=== PATIENT | female | born 1955 | race Asian ===

== ENCOUNTER 2020-09-04 16:23 | Observation (INO) | payer OTHER ==
[~2020-09-04] VITALS: Ht 188 cm; Wt 126.6 kg
[2020-09-04] VITALS (11 sets, daily range): BP systolic 158–206; BP diastolic 62–110; TEMP 98.2–98.9; Ht 188 cm; Wt 126.6 kg
[2020-09-04 17:31] LABS: PLATELET COUNT 146 K/uL (152-353)
[2020-09-04 17:39] LABS: POTASSIUM 4.1 mmol/L (3.6-5.2); SODIUM 137 mmol/L (136-145)
[2020-09-05] VITALS (7 sets, daily range): BP systolic 116–173; BP diastolic 61–88; TEMP 98.2–98.9
[2020-09-05 05:34] LABS: PLATELET COUNT 136 K/uL (152-353)
[2020-09-05 05:56] LABS: POTASSIUM 4.7 mmol/L (3.6-5.2); SODIUM 133 mmol/L (136-145)
[2020-09-06 04:00] VITALS: BP 155/84; TEMP 98.7
[2020-09-06 06:14] LABS: SODIUM 134 mmol/L (136-145)
[2020-09-06 06:30] LABS: PLATELET COUNT 126 K/uL (152-353)
[2020-09-06 08:00] VITALS: BP 115/70; TEMP 98.6
[2020-09-06 11:56] VITALS: BP 138/70; TEMP 99.9
[2020-09-06 16:00] VITALS: BP 145/79; TEMP 99
== END 2020-09-06 16:30 | disposition home or self-care (01) ==
LOC: ED 16:23 → MED/SURG 18:43
PROVIDERS: ADMIT Emergency Medicine Emergency Medical Services; ATTEND Internal Medicine Endocrinology, Diabetes & Metabolism
DX: J18.8 Other pneumonia, unspecified organism (principal); R07.89 Other chest pain; I10 Essential (primary) hypertension; J90 Pleural effusion, not elsewhere classified; N17.9 Acute kidney failure, unspecified; E66.01 Morbid (severe) obesity due to excess calories; E27.9 Disorder of adrenal gland, unspecified
CPT/HCPCS: 36415; 80048; 80053; 84484; 85027; 85379; 87070; 87205; 87635; 93005; 94760; 96360; 96365; 96366; 96372; 96374; 96375; 96376; 99220; 99284; G0378; J0360; J1170; J1650; J1885; J1956; J2270; J2405; J3490; Q9963; U0003

== ENCOUNTER 2020-12-07 08:39 | Outpatient (CLI) | payer OTHER | END 2020-12-07 21:26 | disposition home or self-care (01) | LOC: MAMMO 08:39 | PROVIDERS: ATTEND Nurse Practitioner | DX: Z12.31 Encounter for screening mammogram for malignant neoplasm of breast (principal) ==

== ENCOUNTER 2022-04-04 09:41 | Outpatient (CLI) | payer BC | END 2022-04-04 20:34 | disposition home or self-care (01) | LOC: RAD 09:41 | PROVIDERS: ATTEND Registered Nurse | DX: M79.672 Pain in left foot (principal) ==

== ENCOUNTER 2022-05-07 11:04 | Outpatient (CLI) | payer BC | END 2022-05-07 19:05 | disposition home or self-care (01) | LOC: US 11:04 | PROVIDERS: ATTEND Nurse Practitioner Family | DX: R60.0 Localized edema (principal) ==

== ENCOUNTER 2022-05-13 12:50 | Outpatient (CLI) | payer BC | END 2022-05-13 19:00 | disposition home or self-care (01) | LOC: US 12:50 | PROVIDERS: ATTEND Nurse Practitioner Family | DX: R60.0 Localized edema (principal) ==

== ENCOUNTER 2022-05-30 12:45 | Outpatient (CLI) | payer BC | END 2022-05-30 19:26 | disposition home or self-care (01) | LOC: RAD 12:45 | PROVIDERS: ATTEND Registered Nurse | DX: M54.41 Lumbago with sciatica, right side (principal) ==

== ENCOUNTER 2022-06-05 21:33 | Emergency (ER) | payer BC ==
[~2022-06-05] VITALS: Ht 188 cm; Wt 126.6 kg
[2022-06-05 23:45] VITALS: BP 155/88; TEMP 98.1
== END 2022-06-05 23:45 | disposition home or self-care (01) ==
LOC: ED 21:33
DX: M51.36 Other intervertebral disc degeneration, lumbar region (principal)
CPT/HCPCS: 96372; 99283; J1885

== ENCOUNTER 2022-06-23 04:55 | Inpatient (IN) | payer BC ==
[2022-06-23] VITALS (17 sets, daily range): BP systolic 106–185; BP diastolic 60–101; TEMP 98.1–99.1; Ht 188 cm; Wt 122.0 kg
[~2022-06-23] VITALS: Ht 188 cm; Wt 122.0 kg
[2022-06-23 05:34] LABS: PLATELET COUNT 182 K/uL (152-353)
[2022-06-23 05:40] LABS: POTASSIUM 4.4 mmol/L (3.6-5.2)
[2022-06-23 05:48] LABS: PARTIAL THROMBOPLASTIN TIME 25.7 SECONDS (24.5-33.6)
[2022-06-23] MEDS ORDERED: MOBIC15 MG PO (14:38)
[2022-06-23] MEDS ORDERED: CYCL10TA35 PO (14:39)
[2022-06-23] MEDS ORDERED: CLARITIN10 M1 PO (14:39)
[2022-06-23] MEDS ORDERED: ROPINIROLE4 MG PO (14:40)
[2022-06-24] VITALS: BP 137/66; TEMP 97.9
[2022-06-24 04:00] VITALS: BP 150/78; TEMP 97.9
[2022-06-24 05:55] LABS: PLATELET COUNT 156 K/uL (152-353)
[2022-06-24 06:18] LABS: POTASSIUM 4.5 mmol/L (3.6-5.2)
[2022-06-24 08:00] VITALS: BP 165/80; TEMP 97.9
[2022-06-24] MEDS ORDERED: INSUINJ20 SC (09:04)
[2022-06-24] MEDS ORDERED: DECADRON6 MG PO (09:05)
[2022-06-24] MEDS ORDERED: METF500T PO (10:16)
[2022-06-24] MEDS ORDERED: VITAMIN D1000 UNIT PO (10:20)
[2022-06-24 12:00] VITALS: BP 155/76; TEMP 97.3
== END 2022-06-24 12:48 | disposition home or self-care (01) | DRG 554 ==
LOC: ED 04:55 → MED/SURG 09:10
PROVIDERS: Emergency Medicine; ADMIT Internal Medicine; ATTEND Internal Medicine
DX: M15.8 Other polyosteoarthritis (principal); E09.65 Drug or chemical induced diabetes mellitus with hyperglycemia; T38.0X5A Adverse effect of glucocorticoids and synthetic analogues, initial encounter; Y92.89 Other specified places as the place of occurrence of the external cause; I10 Essential (primary) hypertension; D72.828 Other elevated white blood cell count; E27.8 Other specified disorders of adrenal gland; R79.1 Abnormal coagulation profile
CPT/HCPCS: 36415; 80053; 81002; 82088; 82306; 82550; 82728; 83036; 83615; 83880; 84443; 84484; 85027; 85379; 85610; 85652; 85730; 86038; 86140; 86160; 86225; 86235; 86376; 86430; 86800; 86803; 87635; 93005; 96360; 96374; 96375; 99284; J1650; J2270; J2405; J2543; J2930; Q9963; U0003

== ENCOUNTER 2022-07-05 07:31 | Emergency (ER) | payer BC ==
[~2022-07-05] VITALS: Ht 188 cm; Wt 122.0 kg
[~2022-07-05 07:31] MED LIST: CLARITIN10 M1 PO; CYCL10TA35 PO; DECADRON6 MG PO; INSUINJ20 SC; METF500T PO; MOBIC15 MG PO; ROPINIROLE4 MG PO; VITAMIN D1000 UNIT PO
[2022-07-05 07:34] VITALS: BP 155/95; TEMP 98
== END 2022-07-05 09:20 | disposition home or self-care (01) ==
LOC: ED 07:31
DX: M33.20 Polymyositis, organ involvement unspecified (principal); M79.602 Pain in left arm
CPT/HCPCS: 96372; 99283; J1885; J2930

== ENCOUNTER 2022-07-16 10:52 | Emergency (ER) | payer OTHER ==
[~2022-07-16] VITALS: Ht 188 cm; Wt 121.1 kg
[2022-07-16 14:00] VITALS: BP 168/72; TEMP 98.4
== END 2022-07-16 14:00 | disposition home or self-care (01) ==
LOC: ED 10:52
DX: M25.512 Pain in left shoulder (principal); M79.605 Pain in left leg; N28.89 Other specified disorders of kidney and ureter
CPT/HCPCS: 96372; 99283; J1885; J2930

== ENCOUNTER 2022-07-25 07:31 | Outpatient (CLI) | payer BC | END 2022-07-25 19:09 | disposition home or self-care (01) | LOC: CT 07:31 | PROVIDERS: ATTEND Internal Medicine Nephrology | DX: N28.1 Cyst of kidney, acquired (principal) | CPT/HCPCS: 36415; 82565; 84520; Q9963 ==

== ENCOUNTER 2023-02-28 18:28 | Emergency (ER) | payer BC ==
[~2023-02-28] VITALS: Ht 188 cm; Wt 127.0 kg
[2023-02-28 20:06] VITALS: BP 148/86; TEMP 98.2
== END 2023-02-28 20:06 | disposition home or self-care (01) ==
LOC: ED 18:28
DX: S91.332A Puncture wound without foreign body, left foot, initial encounter (principal); S91.331A Puncture wound without foreign body, right foot, initial encounter; W45.0XXA Nail entering through skin, initial encounter
CPT/HCPCS: 90471; 90715; 99283